=== PATIENT | male | born 1970 | race Caucasian/White ===

== ENCOUNTER 2018-12-02 12:47 | Day surgery (SDC) | payer OTHER ==
[~2018-12-02 12:47] MED LIST: IOPAMIDOL (ISOVUE 370) 75 ML BTL IV ONE
[2018-12-02] MEDS ORDERED: NS 1,000 ML IV ONE (13:01)
--- NOTE | 2018-12-02 13:09 | EDPHY ---
HPI/HX/ROS/PE/MDM Narrative: CHIEF COMPLAINT: Acute appendicitis HPI: The patient is a 48 y/o male arriving directly from the imaging department with acute appendicitis on CT today. Around noon yesterday, about 24 hours ago, he noticed slight right-sided abdominal pain and a mild headache. He initially attributed his symptoms to a cold. Overnight the pain worsened and has remained consistent. Pain is worse with movement and positioning. He took Advil for pain with some improvement. His PCP ordered an outpatient CT for evaluation, which showed acute appendicitis and he was referred to the ED. He denies trauma, dysuria, hematuria, fever, vomiting, diarrhea, loss of appetite. He is typically healthy. No prior abdominal surgeries. Last PO intake around 06:45 this morning. REVIEW OF SYSTEMS: A comprehensive 10 system review of systems is otherwise negative aside from elements mentioned in the history of present illness. PMH: Knee surgery SOCIAL HISTORY: Employed in [employer]. . Lives in [place]. PHYSICAL EXAM: General:Patient is alert, in no acute distress. ENT:Eyes are normal to inspection. ENT inspection normal. Neck: Normal inspection. Full range of motion. Respiratory:No respiratory distress. Breath sounds normal bilaterally. Cardiovascular: Regular rate and rhythm. Strong peripheral pulses. Normal cap refill. Abdomen:The abdomen has RLQ tenderness to palpation. There are no peritoneal signs. Back: Normal to inspection. No tenderness to palpation. Skin: Normal color. No rash. Warm and dry. Extremities: Normal appearance. Full range of motion. Neuro: Oriented x3. Normal motor function. Normal sensory function. ED Course: This is a healthy 48 y/o male complaining of worsening RLQ pain over the last 24 hours. He has RLQ tenderness on exam. CT report reviewed shows acute appendicitis. IV established and labs drawn. 1L IV NS and 15mg IV Toradol ordered. Consulted with Dr. Ha, surgeon. She will assess patient in the ED. - Data Points Imaging Results: Imaging Impressions Abdomen CT 12/02/18 18:00 Impression: Acute appendicitis. Results called to Dr. Patton at 11:18 AM. General information for patients regarding this examination can be found at [email or web address]. If you have questions or comments about this report, please contact me at [phone] (hospital) or [phone] (cell). Imaging: I viewed and interpreted images myself General Time Seen by Provider: 12/02/18 13:01 Initial Vital Signs: Initial Vital Signs Temperature (C) 36.8 C 12/02/18 12:49 Heart Rate 101 H 12/02/18 12:49 Respiratory Rate 18 12/02/18 12:49 Blood Pressure 116/92 H 12/02/18 12:49 O2 Sat (%) 96 12/02/18 12:49 O2 Delivery Mode Room Air Allergies/Adverse Reactions: No Known Allergies Allergy (Unverified 12/02/18 12:53) Home Medications: Medication Instructions Recorded NK [No Known Home Meds] 12/02/18 Departure - Departure Disposition: [facility] Inpatient Acute Clinical Impression: Acute appendicitis Qualifiers: Acute appendicitis type: with localized peritonitis Appendicitis gangrene presence: unspecified whether gangrene present Appendicitis perforation presence : without perforation Appendicitis abscess presence: without abscess Qualified Code(s): K35.30 - Acute appendicitis with localized peritonitis, without perforation or gangrene Condition: Fair Referrals: NONE *PRIMARY CARE P,. [Primary Care Provider] - As per Instructions Report Scribed for: Juan Collins Report Scribed by: Carolin Davis Date of Report: 12/02/18 Time of Report: 13:04 Physician Review and Approval Statement: Portions of this note were transcribed by an ED scribe. I personally performed the history, physical exam, and medical decision making; and confirm the accuracy of the information in the transcribed note.
[2018-12-02] MEDS ORDERED: KETOROLAC 30 MG/1 ML SDV IVP ONE (13:12)
[2018-12-02] MEDS ORDERED: LR 1,000 ML IV ONE (13:17)
[2018-12-02 13:28] LABS: PLATELET COUNT 236 10^3/uL (150-400)
[2018-12-02] MEDS ORDERED: BUPIVACAINE 0.5% 30 ML SDV ONE (13:31)
--- NOTE | 2018-12-02 13:56 | GHP ---
DATE OF ADMISSION: 12/02/2018 CHIEF COMPLAINT: Right lower quadrant abdominal pain. HPI: A 48-year-old male presenting with a 2-day history of right lower quadrant abdominal pain. Patient states the pain began yesterday around noon. Pain has been getting progressively worse. He characterizes it as a constant aching that worsens with any movement and especially twisting motion. The patient had abdominal CT before presenting to emergency department today showing acute appendicitis. The patient denies nausea, vomiting, altered bowel movements and is tolerating a regular p.o. diet. He denies fever or chills. He has not taken any pain medication for discomfort. No sick contacts. PAST MEDICAL HISTORY: ALLERGIES: None. MEDICATIONS: None. MEDICAL CONDITIONS: None. PAST SURGICAL HISTORY: Left knee surgery. FAMILY HISTORY: Noncontributory to present complaint. 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 Marital status, . REVIEW OF SYSTEMS: The patient denies fever, chills, nausea, vomiting, altered bowel habits. Otherwise per intake form and history of present illness. PHYSICAL EXAM: GENERAL: A pleasant, well-developed, well-nourished, well- groomed man in no acute distress. HEENT: Normocephalic. Eyes equal and round. Mucous membranes moist. No gross hearing deficits. LUNGS: Clear to auscultation bilaterally. No increased work of breathing. CARDIAC: Regular rate and rhythm. Normal S1 and S2. No peripheral edema noted. ABDOMEN: Soft , nondistended. [id number]-[id number] pain elicited on palpation of right lower quadrant. Positive Rovsing's sign. MUSCULOSKELETAL: Normal gait. Normal nails. PSYCH: Mood and affect normal. ASSESSMENT: 1. Primary diagnosis acute appendicitis. 2. Secondary diagnosis none. PLAN: Prep patient for laparoscopic appendectomy as soon as possible. Risks, benefits of the procedure were discussed with the patient. Alternative treatment, including watchful waiting with intravenous antibiotics, was also discussed. The patient agrees with surgical treatment plan. Risks and benefits including but not limited to stroke, heart attack, , blood clots, infection, bleeding, damage to surrounding structures were discussed. Anticipatory guidance given, and patient will likely be discharged from the hospital later this evening. Patient instructed to follow up with nm outpatient within 1-2 weeks. /[id number]/MODL MTDD
--- NOTE | 2018-12-02 14:04 | PDANEPAE ---
ANE History of Present Illness acute appendicitis s/f lap appy ANE Past Medical History - Pulmonary History Hx Sleep Apnea: No - Endocrine History Hx Diabetes: No Endocrine History Comment: dyslipidemia ANE Review of Systems Review of Systems: - Exercise capacity Exercise capacity: >=4 METS ANE Patient History - Allergies Allergies/Adverse Reactions: No Known Allergies Allergy (Unverified 12/02/18 12:53) - Home Medications Home medications: home medication list seen and reviewed Home Medications: NK [No Known Home Meds] 12/02/18 [Last Taken Unknown] - NPO status NPO Since - Liquids (Date): 12/02/18 NPO Since - Liquids (Time): 07:00 NPO Since - Solids (Date): 12/02/18 NPO Since - Solids (Time): 07:00 - Anes Hx Anes Hx: no prior problems - Smoking Hx Smoking Status: Never smoked - Alcohol Use Alcohol Use: Occasionally - Family Anes Hx Family Anes Hx: none ANE Labs/Vital Signs - Labs Result Diagrams: 12/02/18 13:05 12/02/18 13:05 - Vital Signs Blood Pressure: 116/92 Heart Rate: 101 Respiratory Rate: 18 O2 Sat (%): 96 Height: 180.34 cm Weight: 102.058 kg ANE Physical Exam - Airway Neck exam: FROM Mallampati Score: Class 2 Mouth exam: normal dental/mouth exam - Pulmonary Pulmonary: no respiratory distress - Cardiovascular Cardiovascular: regular rate and rhythym - ASA Status ASA Status: I, E ANE Anesthesia Plan Anesthesia Plan: general endotracheal anesthesia
[2018-12-02] MEDS ORDERED: fentaNYL 100 MCG/2 ML INJ ONE (14:13)
[2018-12-02] MEDS ORDERED: PROPOFOL/EMULSION 500 MG/50 ML BOTTLE IV ONE (14:13)
[2018-12-02] MEDS ORDERED: LIDOCAINE HCL 160 MG/4 ML LTA KIT TP ONE (14:15)
[2018-12-02] MEDS ORDERED: ROCURONIUM 50 MG/5 ML VIAL ONE (14:16)
[2018-12-02] MEDS ORDERED: ONDANSETRON 4 MG/2 ML VIAL ONE ×2 (14:26→15:10)
[2018-12-02] MEDS ORDERED: DEXAMETHASONE 4 MG/ML VIAL ONE ×2 (14:26)
[2018-12-02] MEDS ORDERED: NEOSTIGMINE METHYLSULFATE 5 MG/5 ML SYR ONE (15:10)
[2018-12-02] MEDS ORDERED: GLYCOPYRROLATE 0.2 MG/1 ML VIAL ONE ×2 (15:10)
[2018-12-02] MEDS ORDERED: ACETAMINOPHEN 500 MG TAB PO PRN (15:36)
[2018-12-02] MEDS ORDERED: LR 500 ML IV PRN (15:36)
[2018-12-02] MEDS ORDERED: ALBUTEROL 3 ML DEYVIAL IH PRN (15:36)
[2018-12-02] MEDS ORDERED: ONDANSETRON 4 MG/2 ML VIAL IVP PRN (15:36)
[2018-12-02] MEDS ORDERED: NALOXONE HCL 0.4 MG/ML INJ IVP PRN (15:36)
[2018-12-02] MEDS ORDERED: METOCLOPRAMIDE 10 MG/2 ML VIAL IVP PRN (15:36)
[2018-12-02] MEDS ORDERED: MEPERIDINE 25 MG/0.5 ML AMP IVP PRN (15:36)
[2018-12-02] MEDS ORDERED: PROMETHAZINE HCL 25 MG/ML INJ IVP PRN (15:36)
[2018-12-02] MEDS ORDERED: oxyCODONE IR 5 MG TAB PO PRN (15:36)
[2018-12-02] MEDS ORDERED: DEXAMETHASONE 4 MG/ML VIAL IVP PRN (15:36)
[2018-12-02] MEDS ORDERED: PHENYLEPHRINE HCL 100 MCG/ML SYR IVP PRN (15:36)
[2018-12-02] MEDS ORDERED: fentaNYL 100 MCG/2 ML INJ IVP PRN (15:36)
[2018-12-02] MEDS ORDERED: LABETALOL HCL 5 MG/ML 20 ML MDV IVP PRN (15:36)
[2018-12-02] MEDS ORDERED: KETOROLAC 15 MG/1 ML SDV IVP ONE (15:37)
--- NOTE | 2018-12-02 15:38 | POSTOPPROG ---
Post Op Note Date of Operation: 12/02/18 Surgeon: Belinda Ha Anesthesiologist: nora Anesthesia: GET(General Endotracheal) Pre-op Diagnosis: acute appendicitis Post-op Diagnosis: same Indication: 48 yo with acute appy Procedure: lap appy Findings: very inflamed retrocecal appendix Inf/Abcess present in the surg proc area at time of surgery?: No EBL: Minimal Specimen(s): appendix
[2018-12-02] MEDS ORDERED: KETOROLAC 15 MG/1 ML SDV ONE (15:54)
[2018-12-02 17:28] VITALS: BP 128/83
--- NOTE | 2018-12-02 18:59 | GOP ---
DATE OF OPERATION: SURGEON: Belinda Ha MD ANESTHESIA: General anesthesia. ANESTHESIOLOGIST: Edenilson Shearer MD PREOPERATIVE DIAGNOSIS: Acute appendicitis. POSTOPERATIVE DIAGNOSIS: Acute appendicitis. PROCEDURE PERFORMED: Laparoscopic appendectomy. FINDINGS: Very inflamed retrocecal appendix. SPECIMENS: Appendix. ESTIMATED BLOOD LOSS: 20 cc. INDICATIONS: This is a 48-year-old man who had abdominal pain. He presented for an outpatient CT to day. An acute appendicitis was noted. DESCRIPTION OF PROCEDURE: The patient was brought into the operating room, placed supine on the tabl e, and general anesthesia was administered. His abdomen was prepped and draped in the usual sterile fashion. I infiltrated all sites with 0.5% Marcaine prior to making incision. I made an incision cassidy eath his umbilicus. I elevated it, I inserted the Veress needle. Although the Veress needle was at its maximum, I felt it just touching the peritoneum. I then exchanged this for a long Veress needle. It passed the hanging drop test. His abdomen was insufflated for pressure of 15 mmHg. He had redu ndant tissue and under direct vision, I placed a 10 mm trocar in the left lower quadrant and a 5 mm t rocar in the pubic area. I explored his abdomen. There was a small amount of fluid by the appendix, although it did not appear to be ruptured. His appendix was retrocecal. I spent a considerable [place] unt of time dissecting the mesoappendix away from the cecum as this was fused in this area. I divide d the base of the appendix with a BRAYDEN 45 white load. I continued dissecting the mesoappendix with th e Harmonic Scalpel. I placed the appendix in the EndoCatch bag and retrieved it via the 10 mm trocar. There was a small bleeder in the periappendiceal tissue. As this was on the retrocecal area I decid ed to use clips to obtain hemostasis. I performed suction irrigation. The clips were in satisfactor y position. Hemostasis achieved. No other abnormalities noted. Ports were removed under direct vision. The abdomen allowed to desufflate. I closed the fascia at t he 10 mm trocar site with 0 Vicryl. The skin had to be enlarged slightly in order to grasp the fasci a adequately. Skin closed with 4-0 Monocryl. Dermabond applied. He was awakened in the operating r oom, extubated, transferred to PACU in stable condition. /[id number]/MODL
== END 2018-12-02 17:23 | disposition home or self-care (01) ==
LOC: EDSTATUS 12:47 → FSGY 13:49
PROVIDERS: ATTEND Surgery
PROC: 0DTJ4ZZ Resection of Appendix, Percutaneous Endoscopic Approach (ICD-10-PCS; principal; 2018-12-02 14:00)
DX: K35.80 Unspecified acute appendicitis (principal); E78.5 Hyperlipidemia, unspecified
CPT/HCPCS: 96374; J0696; J1100; J1885; J2405; J2704; J2710; J3010; Q9967